=== PATIENT | male | born 1950 | race Caucasian/White ===

== ENCOUNTER 2018-07-03 11:43 | Emergency (ER) | payer BC ==
[2018-07-03 13:32] VITALS: BP 149/93
--- NOTE | 2018-07-03 13:46 | UC ---
UC General HPI - HPI Summary HPI Summary: Patient was helping his son remodeling his room and he thinks he just tweaked his low back but then he started getting concerned when it started radiating around his sides. Has had this in the past when he drank too much diet pepsi. No hx of kidney stones. No dysuria or polyuria. No N/V/D No CP or SOB Meds: reviewed - History of Current Complaint Chief Complaint: [facility] Stated Complaint: URINARY Time Seen by Provider: 07/03/18 13:24 Pain Intensity: 4 - Allergy/Home Medications Allergies/Adverse Reactions: Allergies Allergy/AdvReac Type Severity Reaction Status Date / Time Sulfa (Sulfonamide Allergy Hives Verified 07/03/18 13:32 Antibiotics) PMH/Surg Hx/FS Hx/Imm Hx Previously Healthy: Yes - ITP - Surgical History Surgical History: Yes Surgery Procedure, Year, and Place: colon resection d/t diverticulitis - Family History Known Family History: Positive: None, Other - denies fhx of diverticulitis - Social History Alcohol Use: Rare Substance Use Type: None Smoking Status (MU): Never Smoked Tobacco - Immunization History Most Recent Influenza Vaccination: yes Review of Systems All Other Systems Reviewed And Are Negative: Yes Physical Exam Triage Information Reviewed: Yes Appearance: Well-Appearing Vital Signs: Initial Vital Signs Temp 97.5 F 07/03/18 13:24 Pulse 58 07/03/18 13:24 Resp 16 07/03/18 13:24 BP 149/93 07/03/18 13:24 Pulse Ox 97 07/03/18 13:24 Respiratory: Positive: Lungs clear, Normal breath sounds Cardiovascular: Positive: RRR, No Murmur Abdomen Description: Positive: Nontender, Soft Musculoskeletal Exam: Other - mild paraspinal lumbar low back pain. FROM. Course/Dx - Course Course Of Treatment: This is a 68 yr old with bilateral low back pain radiating around unremarkable exam U/A: negative Most likely muscle spasms/strain Plan Unclear exact cause of pain, most likely musculoskeletal I would avoid NSAIDs ie ibuprofen, motrin because of your ITP REcommend tylenol as needed as directed Trial of flexeril as needed for muscle spasms If pain persists or worsens, recommend follow up with your PCP or return to urgent care - Diagnoses Provider Diagnosis: Low back pain Discharge - Sign-Out/Discharge Documenting (check all that apply): Patient Departure All imaging exams completed and their final reports reviewed: No Studies - Discharge Plan Condition: Good Disposition: HOME Prescriptions: Cyclobenzaprine TAB* [Flexeril 10 MG TAB*] 10 mg PO TID PRN #20 tab PRN Reason: Spasms Patient Education Materials: Muscle Spasm (ED) Referrals: Mabel Huggins MD [Primary Care Provider] - Additional Instructions: Unclear exact cause of pain, most likely musculoskeletal I would avoid NSAIDs ie ibuprofen, motrin because of your ITP REcommend tylenol as needed as directed Trial of flexeril as needed for muscle spasms If pain persists or worsens, recommend follow up with your PCP or return to urgent care - Billing Disposition and Condition Condition: GOOD Disposition: Home
== END 2018-07-03 13:50 | disposition home or self-care (01) ==
LOC: UCCORT 11:43
DX: M54.5 Low back pain (principal)
CPT/HCPCS: 81003; 99212; G0463